=== PATIENT | female | born 1935 | race Caucasian/White ===

== ENCOUNTER 2020-03-31 07:34 | Outpatient (CLI) | payer MEDICARE, OTHER ==
--- NOTE | 2020-03-31 08:06 | ULT ---
ULTRASOUND ABDOMINAL AORTA: HISTORY: Screening for abdominal aortic aneurysm FINDINGS: The abdominal aortic measurements are as follows: Proximal: 2 x 2 x 2cm Mid: 2 x 2 x 2cm Distal: 1.4 x 1.4 x 1.4cm IMPRESSION: No evidence of abdominal aortic aneurysm.
--- NOTE | 2020-03-31 09:59 | CT ---
CT PULMONARY LUNG SCAN: HISTORY: The patient is a pack-a-day smoker for 60 years, still smoking. FINDINGS: The lungs are clear of any infiltrative process. There is a tiny 2-3 mm left upper lobe pulmonary no dule axial image 53. There is some interstitial change in the bases probably related to some minimal scarring. Some minimal reticular subpleural scarring seen. There is no bullous emphysematous cotton e. No signs of honeycombing or bronchiectatic-type process. 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 Mediastinal structures show normal-caliber aorta. No significant mediastinal adenopathy appreciated. Visualized liver parenchyma is unremarkable. IMPRESSION: Lung RADS category 2 - benign appearance or behavior. Annual followup examination recommended. POS: OFF
== END 2020-03-31 07:35 | disposition home or self-care (01) ==
LOC: BICULT 07:34
PROVIDERS: ATTEND Internal Medicine
DX: Z13.6 Encounter for screening for cardiovascular disorders (principal); Z12.2 Encounter for screening for malignant neoplasm of respiratory organs; F17.210 Nicotine dependence, cigarettes, uncomplicated
CPT/HCPCS: 76775; G0297

== ENCOUNTER 2023-02-26 12:01 | Outpatient (CLI) | payer MEDICARE, OTHER | END 2023-02-26 12:02 | disposition home or self-care (01) | LOC: SCSRAD 12:01 | PROVIDERS: ATTEND Nurse Practitioner Family | DX: R05.1 Acute cough (principal) | CPT/HCPCS: 71046 ==